=== PATIENT | female | born 1975 | race Caucasian/White ===

== ENCOUNTER 2016-11-03 02:47 | Emergency (ER) | payer SELFPAY ==
--- NOTE | 2016-11-03 03:18 | ED Physician Documentation ---
General Adult - HISTORIAN Historian: patient, other (old records) - HPI Stated Complaint: THORACIC SPINE PAIN Chief Complaint: General Adult Additional Information: 24 hours of back pain not improved with tylenol, advil. Scheduled for back surgery in 32 weeks. Says she has a bulging thoracic disk. Has not talked to Dr. Martin about her increased pain. Recently had c spine surgery and has tingling in left arm and hand. This has not changed in the last 24 hours. No new numbness or tingling. No loss of bowel or bladder control. No paralysis or weakness. 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 - ROS CONST: no problems - PAST HX Past History: other (degenerative disk disease) Surgeries/Procedures: other (back surgery x4) Allergies/Adverse Reactions: Allergies Allergy/AdvReac Type Severity Reaction Status Date / Time No Known Allergies Allergy Verified 11/03/16 02:56 Home Medications: Ambulatory Orders Medication Instructions Recorded Levothyroxine Sodium 50 mcg D 02/08/15 [Levothyroxine Sodium] Gabapentin [Neurontin] 800 mg PO TID 11/03/16 Omeprazole [Prilosec] 40 mg PO QDAY 11/03/16 - SOCIAL HX Smoking History: non-smoker - FAMILY HX Family History: No - VITAL SIGNS Vital Signs: Vital Signs Temp Pulse Resp BP Pulse Ox 88 16 109/68 99 11/03/16 02:50 11/03/16 02:50 11/03/16 02:50 11/03/16 02:50 - REVIEWED ASSESSMENTS Nursing Assessment Reviewed: Yes Vitals Reviewed: Yes Progress - Progress Progress: Patient told she would receive IM toradol. When her ride returns, she will receive Norflex. ED Results Lab/Radiology - Orders Orders: ED Orders Category Date Time Status Ketorolac Tromethamine [Toradol] Med 11/03/16 03:13 Once 60 mg IM NOW ONE Orphenadrine Citrate [Norflex] Med 11/03/16 03:13 Once 60 mg IM NOW ONE General Adult Physical Exam - PHYSICAL EXAM GENERAL APPEARANCE: moderate distress EENT: eye inspection normal, ENT inspection normal NECK: normal inspection, supple RESPIRATORY: no resp distress, chest non-tender, breath sounds normal CVS: reg rate & rhythm, heart sounds normal, no murmur RECTAL: deferred BACK: normal inspection, other (tender left paraspinous muscles at about T 12 level.) SKIN: warm/dry, normal color EXTREMITIES: normal range of motion (gait), no evidence of injury NEURO: CN's nml as tested, motor nml, sensation nml, other (reflexes 2+ throughout) Discharge Clincal Impression: Back pain Additional Instructions: Follow up with Dr. Martin. Home Medications: Ambulatory Orders Levothyroxine Sodium [Levothyroxine Sodium] 50 mcg D 02/08/15 Gabapentin [Neurontin] 800 mg PO TID 11/03/16 Omeprazole [Prilosec] 40 mg PO QDAY 11/03/16 Condition: Good Disposition: 01 HOME, SELF-CARE Decision to Admit: NO Decision Time: 15:23
[2016-11-03] MEDS: KETOROLAC TROMETHAMINE 60 MG/2 ML VIAL IM ONE (03:20)
[2016-11-03] MEDS: ONDANSETRON HCL 4 MG TAB.RAPDIS PO ONE (04:00)
[2016-11-03] MEDS ORDERED: ONDANSETRON HCL 4 MG TAB.RAPDIS ONE (04:10)
[2016-11-03] MEDS: ORPHENADRINE CITRATE 60 MG/2ML IM ONE (04:39)
[2016-11-03 04:57] VITALS: BP 133/91
== END 2016-11-03 04:45 | disposition home or self-care (01) ==
LOC: ED 02:47
DX: M54.9 Dorsalgia, unspecified (principal)
CPT/HCPCS: A9270; J1885; 96372; 99283